=== PATIENT | male | born 1960 | race Caucasian/White ===

== ENCOUNTER 2016-06-27 08:43 | Day surgery (SDC) | payer OTHER ==
[~2016-06-27] VITALS: Ht 172.7 cm; Wt 85.9 kg
[~2016-06-27 08:43] MED LIST: ASPI81TA2 PO; CHOL100034 PO; MULT-1259 PO; NAPR250T2 PO; SODIUM CHLORIDE 0.9% 1,000 ML IV ONE
[2016-06-27] MEDS ORDERED: SODIUM CHLORIDE 0.9% 1,000 ML IV ONE (08:55)
[2016-06-27] MEDS ORDERED: GLUC100019 PO (09:09)
[2016-06-27] MEDS ORDERED: [UNRECOGNIZED DRUG - CODE] TP (09:09)
[2016-06-27] MEDS ORDERED: METF500T4 PO (09:09)
[2016-06-27] MEDS ORDERED: TIZA4TAB4 PO (09:09)
[2016-06-27] MEDS ORDERED: NORT25 PO (09:09)
[2016-06-27 09:36] LABS: GLUCOSE,POINT OF CARE 109 MG/DL (70-110)
[2016-06-27] MEDS ORDERED: LIDOCAINE HCL/PF 1% 30 ML VIAL ONE (11:54)
[2016-06-27] MEDS ORDERED: IOHEXOL 300 MG/ML 10 ML VIAL ONE (11:54)
[2016-06-27 11:57] VITALS: BP 122/85
[2016-06-27 12:07] VITALS: BP 128/76
[2016-06-27] MEDS ORDERED: LIDOCAINE HCL/PF 1% 30 ML VIAL INJ ONE (12:30)
[2016-06-27] MEDS ORDERED: IOHEXOL 300 MG/ML 10 ML VIAL IVP ONE (12:45)
== END 2016-06-27 12:40 | disposition home or self-care (01) ==
LOC: SDS 08:43
PROVIDERS: ATTEND Physical Medicine & Rehabilitation Pain Medicine
DX: M54.16 Radiculopathy, lumbar region (principal); E11.9 Type 2 diabetes mellitus without complications; M54.9 Dorsalgia, unspecified; Z79.82 Long term (current) use of aspirin; Z72.89 Other problems related to lifestyle; Z98.890 Other specified postprocedural states
CPT/HCPCS: 64483; 82962; J1040; J3490; J7030; Q9967

== ENCOUNTER 2016-08-22 09:16 | Day surgery (SDC) | payer OTHER ==
[~2016-08-22] VITALS: Ht 170.2 cm; Wt 84.1 kg
[~2016-08-22 09:16] MED LIST changes: +NORT25 PO; +[UNRECOGNIZED DRUG - CODE] TP
[2016-08-22] MEDS ORDERED: SODIUM CHLORIDE 0.9% 1,000 ML IV ONE (09:30)
[2016-08-22 10:22] LABS: GLUCOSE,POINT OF CARE 106 MG/DL (70-110)
[2016-08-22] MEDS ORDERED: FentaNYL CITRATE-PF 100 MCG/2 ML VIAL ONE (11:51)
[2016-08-22] MEDS ORDERED: SODIUM BICARBONATE 50 MEQ/50 ML VIAL ONE (11:52)
[2016-08-22] MEDS ORDERED: LIDOCAINE HCL/PF 1% 30 ML VIAL ONE (11:52)
[2016-08-22] MEDS ORDERED: MIDAZOLAM HCL 2 MG/2 ML VIAL ONE (11:52)
[2016-08-22 12:03] VITALS: BP 127/83
[2016-08-22] MEDS ORDERED: IOHEXOL 300 MG/ML 10 ML VIAL ONE (12:07)
[2016-08-22] MEDS ORDERED: LIDOCAINE 1% 30 ML/SOD BICARB 8.4% 4 ML SQ ONE (12:07)
[2016-08-22] MEDS ORDERED: BUPIVACAINE HCL/PF 0.75% 10 ML VIAL IARTIC ONE (12:11)
[2016-08-22] MEDS ORDERED: IOHEXOL 300 MG/ML 10 ML VIAL IARTIC ONE (12:11)
[2016-08-22 12:13] VITALS: BP 157/108
[2016-08-22] MEDS ORDERED: BUPIVACAINE HCL/PF 0.75% 10 ML VIAL ONE (12:17)
== END 2016-08-22 13:10 | disposition home or self-care (01) ==
LOC: SDS 09:16
PROVIDERS: ATTEND Physical Medicine & Rehabilitation Pain Medicine
DX: M54.16 Radiculopathy, lumbar region (principal); M54.30 Sciatica, unspecified side; E11.9 Type 2 diabetes mellitus without complications; M54.9 Dorsalgia, unspecified; Z98.890 Other specified postprocedural states; Z72.89 Other problems related to lifestyle
CPT/HCPCS: 64483; 82962; J1040; J2250; J3010; J3490 ×3; J7030; Q9967